=== PATIENT | female | born 1970 | race Caucasian/White ===

== ENCOUNTER 2020-10-03 10:54 | Outpatient (CLI) | payer OTHER | END 2020-10-03 15:00 | disposition home or self-care (01) | LOC: PPH VACUNA 10:54 | DX: Z23 Encounter for immunization (principal) ==

== ENCOUNTER 2024-07-25 17:07 | Emergency (ER) | payer OTHER ==
[~2024-07-25] VITALS: Ht 167.6 cm; Wt 74.8 kg
== END 2024-07-25 19:45 | disposition home or self-care (01) ==
LOC: ER 17:08
DX: S61.231A Puncture wound without foreign body of left index finger without damage to nail, initial encounter (principal); W46.1XXA Contact with contaminated hypodermic needle, initial encounter; Y93.89 Activity, other specified; Y92.89 Other specified places as the place of occurrence of the external cause; Y99.8 Other external cause status; Z88.0 Allergy status to penicillin; Z88.8 Allergy status to other drugs, medicaments and biological substances